=== PATIENT | female | born 2000 | race Caucasian/White ===

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

== ENCOUNTER 2020-01-08 20:25 | Emergency (ER) | payer OTHER, MEDICAID ==
[~2020-01-08] VITALS: Ht 165.1 cm; Wt 62.3 kg
[2020-01-08 20:31] VITALS: BP 104/70; TEMP 99.1
[2020-01-08 21:17] LABS: ALBUMIN 4.3 gm/dL (3.5-5.0); BILIRUBIN,TOTAL 0.3 mg/dL (0.0-1.0); CREATININE, serum 0.64 (0.52-1.25); POTASSIUM 3.6 mmol/L (3.4-5.0); TOTAL PROTEIN 7.6 gm/dL (6.4-8.2)
[2020-01-08 21:22] LABS: COLLECTION METHOD CLEAN CATCH
[2020-01-08 21:29] LABS: HEMOGLOBIN 12.7 g/dl (12.0-15.0); MEAN CELL VOLUME 85 fl (80.0-95.0); MEAN CORPUSCULAR HEMOGLOBIN 28 pg (26.0-32.0); MEAN CORPUSCULAR HGB CONC 33 g/dl (33.0-37.0); MEAN PLATELET VOLUME 10.2 fl (7.4-10.4); PLATELET COUNT 283 K/mm3 (130-400); RED BLOOD COUNT 4.48 M/mm3 (4.10-5.30); REDCELL DISTRIBUTION WIDTH-CV 14.4 % (11.5-14.5)
[2020-01-08 21:31] LABS: PH 6 (5-8); SQUAMOUS EPITHELIAL 0-2 /hpf; URINE APPEARANCE Clear; URINE BACTERIA None Seen /hpf; URINE BILIRUBIN Negative (NEGATIVE); URINE BLOOD 1+ (NEGATIVE); URINE COLOR Straw; URINE GLUCOSE Negative (NEGATIVE); URINE KETONE Negative (NEGATIVE); URINE LEUKOCYTE ESTERASE Negative (NEGATIVE); URINE NITRATE Negative (NEGATIVE); URINE PROTEIN(semi-quant) Negative (NEGATIVE); URINE RBC 0-2 /hpf; URINE UROBILINOGEN Negative (NEGATIVE)
[2020-01-08 22:08] LABS: BAND 1 % (0-10); EOSINOPHIL 1 % (0-4); METAMYELOCYTE 1 % (0-0); NEUTROPHILS 72 % (42.0-75.2)
[2020-01-08 22:09] LABS: MICROCYTOSIS 1+
[2020-01-08 22:10] LABS: PLATELET ESTIMATE NORMAL (NORMAL)
[2020-01-08 22:11] LABS: LYMPHOCYTE 22 % (20.0-51.0)
[2020-01-08 22:52] VITALS: PULSE 75
== END 2020-01-08 22:40 | disposition home or self-care (01) ==
LOC: COL.ER 20:25
PROVIDERS: Nurse Practitioner
DX: O20.0 Threatened abortion (principal); Z3A.01 Less than 8 weeks gestation of pregnancy

== ENCOUNTER 2020-01-15 21:15 | Emergency (ER) | payer OTHER, MEDICAID ==
[~2020-01-15] VITALS: Ht 165.1 cm; Wt 61.8 kg
[2020-01-15 21:18] VITALS: BP 112/65; TEMP 98.6
[2020-01-15 21:42] LABS: BASO # 0.1 (0.0-0.2); BASO % 0.7 % (0.0-2.0); EOS # 0.2 (0.0-0.7); EOS % 2.1 % (0-4.0); GRAN # 5.4 (1.4-6.5); GRAN % 60.5 % (42.2-75.2); HEMATOCRIT 38.1 % (35.0-45.0); HEMOGLOBIN 12.7 g/dl (12.0-15.0); LYMPH # 2.7 (1.2-3.4); LYMPH % 29.8 % (20.0-51.0); MEAN CELL VOLUME 85 fl (80.0-95.0); MEAN CORPUSCULAR HEMOGLOBIN 29 pg (26.0-32.0); MEAN CORPUSCULAR HGB CONC 33 g/dl (33.0-37.0); MEAN PLATELET VOLUME 10.4 fl (7.4-10.4); MONO # 0.6 (0.1-0.6); MONO % 6.7 % (1.7-9.3); PLATELET COUNT 291 K/mm3 (130-400); RED BLOOD COUNT 4.46 M/mm3 (4.10-5.30); REDCELL DISTRIBUTION WIDTH-CV 14.6 % (11.5-14.5)
[2020-01-15 22:09] LABS: COLLECTION METHOD CLEAN CATCH
[2020-01-15 22:14] LABS: MUCOUS Present /lpf; PH 6 (5-8); SQUAMOUS EPITHELIAL 0-2 /hpf; URINE APPEARANCE Clear; URINE BACTERIA Rare /hpf; URINE BILIRUBIN Negative (NEGATIVE); URINE BLOOD 3+ (NEGATIVE); URINE COLOR Yellow; URINE GLUCOSE Negative (NEGATIVE); URINE KETONE Negative (NEGATIVE); URINE LEUKOCYTE ESTERASE Negative (NEGATIVE); URINE NITRATE Negative (NEGATIVE); URINE PROTEIN(semi-quant) Negative (NEGATIVE); URINE RBC None Seen /hpf; URINE UROBILINOGEN Negative (NEGATIVE)
[2020-01-15 23:18] VITALS: PULSE 92
== END 2020-01-15 23:18 | disposition home or self-care (01) ==
LOC: COL.ER 21:15
PROVIDERS: Emergency Medicine
DX: O20.0 Threatened abortion (principal)

== ENCOUNTER 2020-07-03 14:17 | Emergency (ER) | payer OTHER, MEDICAID ==
[~2020-07-03] VITALS: Ht 165.1 cm; Wt 63.6 kg
[2020-07-03 14:29] VITALS: BP 117/55; TEMP 98.8
[2020-07-03 15:51] LABS: STREP SCREEN NEGATIVE
[2020-07-03 16:49] VITALS: PULSE 87
== END 2020-07-03 16:49 | disposition home or self-care (01) ==
LOC: COL.ER 14:17
PROVIDERS: Physician Assistant
DX: O98.512 Other viral diseases complicating pregnancy, second trimester (principal); J02.9 Acute pharyngitis, unspecified; B34.9 Viral infection, unspecified; Z3A.18 18 weeks gestation of pregnancy; Z20.828 Contact with and (suspected) exposure to other viral communicable diseases

== ENCOUNTER 2021-02-13 02:32 | Emergency (ER) | payer MEDICAID ==
[~2021-02-13] VITALS: Ht 165.1 cm; Wt 63.6 kg
[2021-02-13 03:43] LABS: HEMOGLOBIN 13.2 g/dl (12.0-15.0); MEAN CELL VOLUME 87 fl (80.0-95.0); MEAN CORPUSCULAR HEMOGLOBIN 30 pg (26.0-32.0); MEAN CORPUSCULAR HGB CONC 34 g/dl (33.0-37.0); MEAN PLATELET VOLUME 11.5 fl (7.4-10.4); PLATELET COUNT 179 K/mm3 (130-400); RED BLOOD COUNT 4.47 M/mm3 (4.10-5.30); REDCELL DISTRIBUTION WIDTH-CV 13.2 % (11.5-14.5)
[2021-02-13 03:54] LABS: ALBUMIN 4.2 gm/dL (3.5-5.0); BILIRUBIN,TOTAL 0.3 mg/dL (0.0-1.0); CALCIUM 9.6 mg/dL (8.4-10.2); CREATININE, serum 0.68 (0.52-1.25); POTASSIUM 3.5 mmol/L (3.4-5.0); TOTAL PROTEIN 7.1 gm/dL (6.4-8.2)
[2021-02-13 04:22] LABS: BAND 5 % (0-10); LYMPHOCYTE 45 % (20.0-51.0); NEUTROPHILS 34 % (42.0-75.2); PLATELET ESTIMATE NORMAL (NORMAL)
[2021-02-13] MEDS ORDERED: ZOFRAN ODT4 MG PO (04:57)
[2021-02-13 05:10] VITALS: BP 115/83; PULSE 71; TEMP 98.4
== END 2021-02-13 05:10 | disposition home or self-care (01) ==
LOC: COL.ER 02:32
PROVIDERS: Emergency Medicine Emergency Medical Services
DX: B34.9 Viral infection, unspecified (principal)
CPT/HCPCS: J2405; J7030

== ENCOUNTER 2021-10-08 00:05 | Emergency (ER) | payer MEDICAID ==
[~2021-10-08] VITALS: Ht 165.1 cm; Wt 59.1 kg
[~2021-10-08 00:05] MED LIST: ZOFRAN ODT4 MG PO
[2021-10-08 00:58] VITALS: BP 117/83; PULSE 83
[2021-10-08] MEDS ORDERED: CEPHALEXIN500 M1 PO (00:58)
== END 2021-10-08 01:05 | disposition home or self-care (01) ==
LOC: COL.ER 00:05
DX: S01.511A Laceration without foreign body of lip, initial encounter (principal); W22.03XA Walked into furniture, initial encounter